=== PATIENT | female | born 1955 | race Two or more races ===

== ENCOUNTER 2021-09-21 13:08 | Emergency (ER) | payer OTHER, MEDICARE, SELFPAY ==
--- NOTE | ~2021-09-21 | XR_ITS ---
EXAMINATION: XR SHOULDER, LEFT CLINICAL INFORMATION: Left shoulder pain COMPARISON: None TECHNIQUE: Left shoulder is imaged in 3 views. FINDINGS: No fracture, dislocation, destructive process. The glenohumeral joint is normal. There is a punctate calcification in region of distal infraspinatus tendon consistent with calcific tendinosis. The acromioclavicular alignment is normal. There are degenerative changes acromioclavicular joint with inferior spurring. There is superior lateral spurring from the acromion at the origin deltoid. XR/XR shoulder LT min 2V IMPRESSION: 1. Punctate calcific tendinosis in region of distal infraspinatus. 2. Degenerative changes acromioclavicular joint. Spurring at origin deltoid.
[2021-09-21 13:14] VITALS: BP 158/108; PULSE 92; O2SAT 98
[2021-09-21 13:15] VITALS: BP 146/89; PULSE 90; RESP 18; TEMP 37; O2SAT 98; BMI 43.9
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
[2021-09-21] MEDS: Ketorolac Tromethamine 15 MG/ML VIAL 30 MG IM (13:48)
[2021-09-21 14:40] VITALS: RESP 18
--- NOTE | 2021-09-21 15:00 | PC.NURSE ---
pt ambulated to bathroom and back with family member without any difficutly, now talking on cellular device on stretcher.
== END 2021-09-21 15:41 | disposition home or self-care (01) ==
PROVIDERS: Emergency Provider Emergency Medicine
DX: S06.0X0A Concussion without loss of consciousness, initial encounter (principal); S13.4XXA Sprain of ligaments of cervical spine, initial encounter; S29.012A Strain of muscle and tendon of back wall of thorax, initial encounter; V43.62XA Car passenger injured in collision with other type car in traffic accident, initial encounter; R51.9 Headache, unspecified; Y93.89 Activity, other specified; Y92.414 Local residential or business street as the place of occurrence of the external cause; Y99.9 Unspecified external cause status
CPT/HCPCS: 73030; 96372; 99283; 99284; J1885